=== PATIENT | female | born 1980 | race Caucasian/White ===

== ENCOUNTER 2021-05-17 13:13 | Inpatient (IN) ==
[2021-05-17 13:25] VITALS: BMI 33.3
--- NOTE | 2021-05-17 13:37 | DR.SOBA ---
HPI Time Seen Time Seen by Provider: 05/17/21 13:31 Primary Care Physician Primary Care Physician: ABBEY WATTS Complaints Chief Complaint Doctors Comments: 40 y/o female, ill for the past several days. Presents with worsening dyspnea. Pt started with back pain, 1 week ago. Developed a nono productive cough several days ago. Tested negative for Covid (no vaccines), treated with Zpak/Levaquin for possible pneumonia. Having persistent cough, worsening dyspnea. Dyspnea worse with exertion, improved with rest. Associated with decreased taste, fever, body aches. Chief Complaint:: PT. STATES SHE WAS DIAGNOSED WITH PNEUMONIA THIS PAST TUESDAY PER PCP AND WAS PLACED ON LEVAQUIN AND A ZPAK. PT. TESTED NEGATIVE FOR COVID ON TUESDAY. PT. HAS HAD SHORTNESS OF BREATH, FEVER, COUGH X 1 WEEK. PT. STATES THE SHORTNESS OF BREATH HAS GOTTEN WORSE. PT. ALSO C/O CHEST DISCOMFORT, HEADACHE AND BACK PAIN. COVID-19 Coronavirus risk:travel/contact w/high risk person: Yes Has patient experienced Coronavirus symptoms: Yes Coronavirus symptoms experienced: Fever, Coughing and Shortness of Breath Reviewed Nurses Notes Reviewed: Yes Source History Provided: Patient Mode of Arrival Mode of Arrival: Ambulatory Timing Onset of Chief Complaint: 05/10/21 If Chest Pain Quality: Aching If Cough Cough: Nonproductive PMH PMH Past Medical History: No Past Surgical History: Yes Surgical History: Other Past Surgical History Comment: NECK Family History History of Family Medical Conditions: Yes Family Medical History: Diabetes Mellitus, Cancer and Coronary Artery Disease Social History Does patient currently use any type of tobacco product: No Have you used tobacco products in the last 12 months: No Type of Tobacco Use: None Does any household member use tobacco: No Alcohol Use: None Do you use any recreational Drugs:: No Lives With: Spouse Lives Where: Home Infectious screening In the last 2 months have you had wt loss of >10#?: NO Have you had fever, night sweats or hemotysis?: No Have you traveled outside the country in the last 6 months?: No Isolation: Droplet ROS Review of Systems Constitutional: Chills, Fever and Weakness Eyes: No Symptoms Reported ENTM: No Symptoms Reported Respiratoy: Non-Productive Cough and Short of Breath Cardiovascular: No Symptoms Reported Gastrointestinal/Abdominal: Constipation Genitourinary: No Symptoms Reported Neurological: No Symptoms Reported Musculoskeletal: Muscle Pain Integumentary: No Symptoms Reported Hematologic/Lymphatic: No Symptoms Reported Endocrine: No Symptoms Reported Psychiatric: No Symptoms Reported All Other Systems: Reviewed and Negative PE Vital Signs Vitals: Temperature 98.0 F Pulse Rate 88 Respiratory Rate 24 Blood Pressure 114/79 O2 Sat by Pulse Oximetry 99 General Limitations: No Limitations General Appearance: Alert and In Distress (mild, dry cough, some tachypnea) Head Head Exam: Normal Inspection Eyes Eye exam: Normal Appearance ENT ENT Exam: Normal Exam Neck Neck Exam: Normal Inspection Chest Chest Inspection: Normal Inspection Respiratory Respiratory Exam: Normal Lung Sounds Bilat Respiratory Exam: Bilateral: Clear to Auscultation Cardiovascular Cardiovascular Exam: Regular Rate, Normal Rhythm and Normal Heart Sounds Abdominal Exam Abdominal Exam: Normal Inspection Extremities Extremities Exam: Normal Inspection and Full ROM; negative Edema Back Back Exam: Normal Inspection Neurologic Neurological Exam: Alert, Oriented X3 and CN II-XII Intact; negative Motor Sensory Deficit Psychiatric Psychiatric Exam: Normal Affect Skin Skin Exam: Warm MDM Differential Diagnosis Differential Diagnosis: Bronchitis, CHF and Pneumonia Differential Diagnosis Comment:: Covid, influenza, RSV COURSE Treatment Treatment: 40 y/o female, ill past week with dry cough, worsening dyspnea. + concerning for Covid. W/u initiated. 1430 - Covid +. CXR with bilateral patchy, gropund glass infiltrates. Pt clinically with covid pneumonia, degree of hypoxia. Recommend admission for further treatment. Discussed with the hospitalist, Dr. Goodwin, accepts the admission. His COMPUTER SUPPORT TECHNICIAN has seen the pt here in the ER. [facility]OR Labs Reviewed Laboratory Results Reviewed?: Yes Result Diagrams: 05/17/21 14:00 05/17/21 14:00 Laboratory: WBC 11.6 X10^3/uL (3.6-10.0) H 05/17/21 14:00 RBC 5.69 X10^6/uL (3.5-5.4) H 05/17/21 14:00 Hgb 11.0 g/dL (12.0-16.0) L 05/17/21 14:00 Hct 35.1 % (36.0-47.0) L 05/17/21 14:00 MCV 61.7 fL (80.0-100.0) L 05/17/21 14:00 MCH 19.4 pg (27.0-34.0) L 05/17/21 14:00 MCHC 31.4 g/dL (33.0-35.0) L 05/17/21 14:00 RDW 20.1 % (11.6-16.5) H 05/17/21 14:00 Plt Count 304 X10^3/uL (150.0-450.0) 05/17/21 14:00 Plt Count Comment Adequate (ADEQUATE) 05/17/21 14:00 MPV 8.4 fL (7.4-11.0) 05/17/21 14:00 Neut % (Auto) 87.6 % (42.0-75.0) H 05/17/21 14:00 Lymph % (Auto) 7.2 % (21.0-51.0) L 05/17/21 14:00 [place] % (Auto) 5.0 % (0.0-13.0) 05/17/21 14:00 Eos % (Auto) 0.0 % (0.9-2.9) L 05/17/21 14:00 Baso % (Auto) 0.2 % (0.2-1.0) 05/17/21 14:00 Neut # (Auto) 10.1 x10^3/uL (2.2-4.8) H 05/17/21 14:00 Lymph # (Auto) 0.8 X10^3/uL (1.3-2.9) L 05/17/21 14:00 [place] # (Auto) 0.6 x10^3/uL (0.3-0.8) 05/17/21 14:00 Eos # (Auto) 0.0 x10^3/uL (0.0-0.2) 05/17/21 14:00 Baso # (Auto) 0.0 X10^3/uL (0.0-0.1) 05/17/21 14:00 Absolute Nucleated RBC 0.0 /100WBC 05/17/21 14:00 Plt Morphology Comment Normal (NORMAL) 05/17/21 14:00 RBC Morphology Abnormal (NORMAL) A 05/17/21 14:00 Hypochromasia 1+ A 05/17/21 14:00 Anisocytosis Slight A 05/17/21 14:00 Microcytosis 2+ A 05/17/21 14:00 Ovalocytes 1+ A 05/17/21 14:00 D-Dimer 0.70 ug/ml (0.0-0.57) H* 05/17/21 14:00 Sample Site Right brachial 05/17/21 14:05 ABG pH 7.480 (7.35-7.45) H 05/17/21 14:05 ABG pCO2 35.0 mmHg (35.0-45.0) 05/17/21 14:05 ABG pO2 66.0 mmHg (80.0-100.0) L 05/17/21 14:05 ABG HCO3 26.1 mmol/L (22-26) H 05/17/21 14:05 ABG O2 Saturation 94.0 % (90-100) 05/17/21 14:05 ABG Base Excess 2.8 mmol/L (-2.0-2.0) H 05/17/21 14:05 Wu Test Na 05/17/21 14:05 A-a Gradient 40.0 mmHg 05/17/21 14:05 FiO2 21.0 05/17/21 14:05 Blood Gas Comments Paulina well aw 05/17/21 14:05 Sodium 137 mmol/L (136-145) 05/17/21 14:00 Corrected Sodium TNP 05/17/21 14:00 Potassium 3.7 mmol/L (3.5-5.1) 05/17/21 14:00 Chloride 101 mmol/L (98-107) 05/17/21 14:00 Carbon Dioxide 27.3 mmol/L (21-32) 05/17/21 14:00 BUN 13 mg/dL (7-18) 05/17/21 14:00 Creatinine 0.94 mg/dL (0.55-1.02) 05/17/21 14:00 Est GFR (MDRD) Af Amer > 60 (>60) 05/17/21 14:00 Est GFR (MDRD) Non-Af > 60 (>60) 05/17/21 14:00 Glucose 83 mg/dL (65-99) 05/17/21 14:00 Calcium 8.0 mg/dL (8.5-10.1) L 05/17/21 14:00 Corrected Calcium 8.7 mg/dL (8.5-10.1) 05/17/21 14:00 Ferritin 20 ng/mL (8-252) 05/17/21 14:00 Total Bilirubin 0.30 mg/dL (0.2-1.0) 05/17/21 14:00 AST 50 Units/L (15-37) H 05/17/21 14:00 ALT 91 Units/L (12-78) H 05/17/21 14:00 Alkaline Phosphatase 94 Units/L (46-116) 05/17/21 14:00 C-Reactive Protein 35.80 mg/L (0-3.0) H 05/17/21 14:00 B-Natriuretic Peptide < 5.0 pg/mL (0-79) 05/17/21 14:00 Total Protein 7.7 g/dL (6.4-8.2) 05/17/21 14:00 Albumin 3.1 g/dL (3.4-5.0) L 05/17/21 14:00 Globulin 4.6 g/dL (2.5-4.5) H 05/17/21 14:00 Albumin/Globulin Ratio 0.7 Ratio (1.1-2.1) L 05/17/21 14:00 SARS-CoV-2 (PCR) Positive (NEGATIVE) A 05/17/21 13:49 Influenza Type A (PCR) Negative (NEGATIVE) 05/17/21 13:49 Influenza Type B (PCR) Negative (NEGATIVE) 05/17/21 13:49 RSV (PCR) Negative (NEGATIVE) 05/17/21 13:49 Other Results Comments: WBC 11,600. ABG - pO2low at 66, pulse ox 94% RA. Chemistries overall acceptable. CRP elevated to 35. Covid is +. XRAY XRAY Interpreted by: Radiologist X-ray Results: + bilateral patchy infiltrates, ground glass. Opioid Opioid Risk Tool Total: 0 Total Score Risk Category: Low Risk Copyright: Herman VEE predicting aberrant behaviors Diagnosis Discharge Problem: Pneumonia due to 2019-nCoV
[2021-05-17] MEDS ORDERED: NS 1000 ML 1,000 ML IV ONE (13:38)
--- NOTE | 2021-05-17 14:02 | RAD ---
HISTORYSOB, PNEUMONIA, COUGH, DYSPNEASTUDYSingle-view [id number]/22/[facility]FINDINGSThe trachea is midline. The cardiac silhouette is accentuated by portable technique. Developing interstitial and airspace opacities of the left midlung zone with subtle opacity the right midlung zone. Continued follow-up to evaluate developing multifocal pneumonia is recommended. The bony thorax is unremarkable.IMPRESSIONDeveloping foot multifocal airspace opacities with interstitial ground-glass opacities. Continued follow-up will be needed for underlying atypical infectious etiologies.Electronically signed by: ELIANE PETER (May 17, 2021 14:00:17)
[2021-05-17 14:10] LABS: ABG BASE EXCESS 2.8 mmol/L (-2.0-2.0); ABG HCO3 26.1 mmol/L (22-26)
[2021-05-17] MEDS ORDERED: NS 1000 ML 1,000 ML ONE (14:10)
[2021-05-17 14:12] LABS: BASOPHILS % (AUTO) 0.2 % (0.2-1.0); HEMATOCRIT 35.1 % (36.0-47.0); LYMPHOCYTES # (AUTO) 0.8 X10^3/uL (1.3-2.9); LYMPHOCYTES % (AUTO) 7.2 % (21.0-51.0); MEAN CORPUSCULAR HEMOGLOBIN 19.4 pg (27.0-34.0); MEAN CORPUSCULAR HGB CONC 31.4 g/dL (33.0-35.0); MEAN CORPUSCULAR VOLUME 61.7 fL (80.0-100.0); MEAN PLATELET VOLUME 8.4 fL (7.4-11.0); MONOCYTES # (AUTO) 0.6 x10^3/uL (0.3-0.8); NEUTROPHILS # (AUTO) 10.1 x10^3/uL (2.2-4.8); NEUTROPHILS % (AUTO) 87.6 % (42.0-75.0); PLATELET COUNT 304 X10^3/uL (150.0-450.0); RED BLOOD COUNT 5.69 X10^6/uL (3.5-5.4); RED CELL DISTRIBUTION WIDTH 20.1 % (11.6-16.5); WHITE BLOOD COUNT 11.6 X10^3/uL (3.6-10.0)
[2021-05-17 14:23] LABS: ALANINE AMINOTRANSFERASE 91 Units/L (12-78); ALBUMIN 3.1 g/dL (3.4-5.0); ALKALINE PHOSPHATASE 94 Units/L (46-116); ASPARTATE AMINO TRANSFERASE 50 Units/L (15-37); BLOOD UREA NITROGEN 13 mg/dL (7-18); CARBON DIOXIDE 27.3 mmol/L (21-32); CHLORIDE 101 mmol/L (98-107); COR CA(FOR HYPOALB) 8.7 mg/dL (8.5-10.1); CREATININE 0.94 mg/dL (0.55-1.02); SODIUM 137 mmol/L (136-145); TOTAL PROTEIN 7.7 g/dL (6.4-8.2); eGFR NON BLACK RACES > 60 (>60)
[2021-05-17 14:27] LABS: ANISOCYTOSIS SLIGHT; HYPOCHROMASIA 1+; MICROCYTOSIS 2+; OVALOCYTES 1+; PLATELET MORPHOLOGY COMMENT NORMAL (NORMAL)
[2021-05-17] MEDS ORDERED: REMDESIVIR 200 MG in NS 250 ML IV 250 ML IV ONE (16:09)
[2021-05-17] MEDS ORDERED: NS 250 ML IV 250 ML IV ONE (16:59)
[2021-05-17] MEDS ORDERED: DUONEB 0.5 MG/3 MG (3 mL) NEB ONE (17:09)
[2021-05-17] MEDS: DUONEB 0.5 MG/3 MG (3 mL) NEB SCH (17:48)
[2021-05-17] MEDS: ROBITUSSIN DM PO SCH ×2 (18:10→20:06)
[2021-05-17] MEDS ORDERED: PROVENTIL NEB TX 0.083% 2.5MG/ 3ML NEB PRN (18:34)
[2021-05-17] MEDS: ZITHROMAX INJ 500 MG VIAL 500 MG in NS 250 ML IV 250 ML IV SCH (19:00)
[2021-05-17] MEDS ORDERED: TYLENOL 325 MG TAB PO ONE (19:35)
[2021-05-17] MEDS ORDERED: COLACE CAP 100 MG PO ONE (19:35)
[2021-05-17] MEDS ORDERED: ROBITUSSIN DM ONE (19:35)
[2021-05-17] MEDS: COLACE CAP 100 MG PO SCH (20:05)
[2021-05-17] MEDS: TYLENOL 325 MG TAB PO PRN (20:06)
[2021-05-17] MEDS ORDERED: SOLU-Medrol 125 MG VIAL ONE (20:50)
[2021-05-17] MEDS: SOLU-Medrol 125 MG VIAL IVP SCH (21:14)
[2021-05-17] MEDS: TUSSIONEX PENNKINETIC SUSP PO PRN (21:15)
[2021-05-17] MEDS: AMBIEN PO PRN (21:15)
[2021-05-18] MEDS: DUONEB 0.5 MG/3 MG (3 mL) NEB SCH ×4 (00:55→16:57)
[2021-05-18] MEDS ORDERED: DUONEB 0.5 MG/3 MG (3 mL) NEB ONE ×2 (00:58→05:35)
[2021-05-18] MEDS: SOLU-Medrol 125 MG VIAL IVP SCH ×3 (05:12→21:00)
[2021-05-18] MEDS: TYLENOL 325 MG TAB PO PRN ×3 (05:16→23:15)
[2021-05-18] MEDS ORDERED: NS 100 ML IV 100 ML ONE (08:51)
--- NOTE | 2021-05-18 09:37 | CT ---
HISTORYRule out PE, COVID positiveSTUDYCTA CHESTCOMPARISONChest radiograph from 1 day prior.TECHNIQUECTA chest protocol with axial images from the thoracic inlet to upper abdomen with IV contrast. Sagittal and coronal reformats and MIP images were created. Automated exposure control was utilized.FINDINGSThe visualized thyroid gland appears benign. Non-atherosclerotic normal caliber thoracic aorta. Pulmonary artery is normal in caliber centrally. No filling defect is identified to suggest pulmonary embolism. The heart is normal in size. No pericardial effusion. No pathologic adenopathy in the thorax. Visualized upper abdomen has a benign appearance. No acute osseous abnormality. The trachea and mainstem bronchi appear patent. Moderate bilateral ground-glass opacities and consolidations in a pattern typical for COVID 19. There is also some mild subsegmental atelectasis in the lung bases. No pleural effusion or pneumothorax.IMPRESSIONNegative for pulmonary embolism. Bilateral moderate ground-glass and consolidation in a pattern typical for COVID 19.Electronically signed by: Beni Ellis (May 18, 2021 09:35:22)
[2021-05-18] MEDS: PULMICORT NEB TX 0.5 MG NEB SCH ×2 (09:52→20:42)
[2021-05-18 10:00] LABS: ABG BASE EXCESS 2.2 mmol/L (-2.0-2.0); ABG HCO3 26.5 mmol/L (22-26)
[2021-05-18] MEDS: ROBITUSSIN DM PO SCH ×5 (10:32→22:30)
[2021-05-18] MEDS: MILK OF MAGNESIA PO SCH (10:33)
[2021-05-18] MEDS: REMDESIVIR 100 MG in NS 250 ML IV 250 ML IV SCH (10:33)
[2021-05-18] MEDS: LOVENOX INJ 30 MG SYR SC SCH ×2 (10:34→21:00)
[2021-05-18] MEDS: ZITHROMAX INJ 500 MG VIAL 500 MG in NS 250 ML IV 250 ML IV SCH (10:34)
[2021-05-18 10:46] LABS: BASOPHILS % (AUTO) 0 % (0.2-1.0); HEMATOCRIT 33.8 % (36.0-47.0); HEMOGLOBIN 10.7 g/dL (12.0-16.0); LYMPHOCYTES # (AUTO) 0.5 X10^3/uL (1.3-2.9); MEAN CORPUSCULAR HEMOGLOBIN 19.5 pg (27.0-34.0); MEAN CORPUSCULAR HGB CONC 31.5 g/dL (33.0-35.0); MEAN CORPUSCULAR VOLUME 61.7 fL (80.0-100.0); MEAN PLATELET VOLUME 8.7 fL (7.4-11.0); MONOCYTES # (AUTO) 0.2 x10^3/uL (0.3-0.8); MONOCYTES % (AUTO) 1.5 % (0.0-13.0); NEUTROPHILS # (AUTO) 9.4 x10^3/uL (2.2-4.8); NEUTROPHILS % (AUTO) 93.5 % (42.0-75.0); PLATELET COUNT 317 X10^3/uL (150.0-450.0); RED BLOOD COUNT 5.48 X10^6/uL (3.5-5.4); RED CELL DISTRIBUTION WIDTH 20.5 % (11.6-16.5); WHITE BLOOD COUNT 10.1 X10^3/uL (3.6-10.0)
[2021-05-18 11:06] LABS: ALANINE AMINOTRANSFERASE 120 Units/L (12-78); ALBUMIN 2.8 g/dL (3.4-5.0); ALKALINE PHOSPHATASE 115 Units/L (46-116); ASPARTATE AMINO TRANSFERASE 62 Units/L (15-37); BLOOD UREA NITROGEN 12 mg/dL (7-18); CALCIUM 8.5 mg/dL (8.5-10.1); CARBON DIOXIDE 27.2 mmol/L (21-32); CHLORIDE 104 mmol/L (98-107); COR CA(FOR HYPOALB) 9.5 mg/dL (8.5-10.1); COR NA(FOR HYPERGLY) 142 mmol/L (136-145); CREATININE 0.91 mg/dL (0.55-1.02); SODIUM 140 mmol/L (136-145); TOTAL PROTEIN 7.4 g/dL (6.4-8.2); eGFR NON BLACK RACES > 60 (>60)
[2021-05-18 11:46] LABS: BAND NEUTROPHILS % 1 % (0-10); PLATELET MORPHOLOGY COMMENT NORMAL (NORMAL)
[2021-05-18] MEDS ORDERED: DUONEB 0.5 MG/3 MG (3 mL) NEB SCH (18:00)
--- NOTE | 2021-05-18 18:43 | DR.H&P ---
H&P - History & Physical for Day of: H&P Date: 05/17/21 - Chief Complaint Chief Complaint: CCC, SOB, COVID 19+ - History of Present Illness History of Present Illness: PT IS 40WF ER ADMISSION WITH CO FAILED OUTPT TREATMENT OF COVID 19+ PT HAD PNEUMONIA ON CXR WITH HYPOXIA. PT DENIES ANY PMH OF CAD, DM OR HTN. PT ADMITTED FOR TREATMENT AND EVALUATION FOR ACUTE ILLNESS. - Past Medical History Past Medical History: Arthritis, Hypertension - Past Surgical History Surgical History: Ortho Surgery - Family History Family Medical History: Diabetes Mellitus, Cancer, [place], Hypertension - Social History Does patient currently use any type of tobacco product: No Have you used tobacco products in the last 12 months: No Type of Tobacco Use: None Does any household member use tobacco: No Alcohol Use: None Drug Use: None - Medications Home Medications: No Known Drug Allergies Allergy (Verified 05/17/21 14:15) CONTINUE taking the following medications azithromycin See Rx Instructions .ROUTE .COMPLEX 05/17/21 [History] levofloxacin 500 mg PO DAILY 05/17/21 [History] methylprednisolone See Rx Instructions .ROUTE .COMPLEX 05/17/21 [History] zolpidem 10 mg PO HS 05/17/21 [History] - Review of Systems Constitutional: Fever, Chills, Weakness, Malaise Eyes: No Symptoms Reported ENT: No Symptoms Reported Respiratory: Shortness of Breath, SOB with Excertion, Pleuritic Pain Cardiovascular: Chest Pain Gastrointestinal: No Symptoms Reported Genitourinary: No Symptoms Reported Musculoskeletal: No Symptoms Reported Skin: No Symptoms Reported Neurological: No Symptoms Reported - Physical Exam Vital Signs: Temperature 99.5 F Pulse Rate [Right Brachial] 103 Pulse Rate 95 Respiratory Rate 28 Blood Pressure [Left Arm] 140/70 Blood Pressure [Right Arm] 112/59 Blood Pressure 114/79 O2 Sat by Pulse Oximetry 92 Oriented: Normal Eyes: Normal Ear: Normal Nose: Normal Throat: Dry Respiratory: RML Diminished, RLL Diminished, LML Diminished, LLL Diminished Cardiovascular: Normal : Normal Auscultation: Bowel Sounds: Normal Palpation: Normal Tenderness: Normal Skin: Decreased Turgur Musculoskeletal: Back:Lumbar Psychiatric: Anxiety Affect: Anxious Speech Pattern: Clear, Appropriate - Assessment/Plan (1) Pneumonia due to 2019-nCoV Status: Acute Plan: ADMIT ISOLATION ICU. IV REMDESIVIR. IV ZITHROMAX AND ZOSYN, IV SOLU MEDROL. IV HYDRATION, AM ABG. RESP THERAPY, SUPPLEMENTAL O2 (2) Hypoxia Status: Acute - Allergies Allergies/Adverse Reactions: Allergies Allergy/AdvReac Type Severity Reaction Status Date / Time No Known Drug Allergies Allergy Verified 05/17/21 14:15
[2021-05-18] MEDS: AMBIEN PO PRN (21:00)
[2021-05-18] MEDS: COLACE CAP 100 MG PO SCH (21:00)
[2021-05-18] MEDS: TUSSIONEX PENNKINETIC SUSP PO PRN (21:00)
[2021-05-19] MEDS: DUONEB 0.5 MG/3 MG (3 mL) NEB SCH ×5 (00:05→16:40)
[2021-05-19] MEDS: SOLU-Medrol 125 MG VIAL IVP SCH ×3 (05:20→21:36)
[2021-05-19 05:21] LABS: BASOPHILS % (AUTO) 0.1 % (0.2-1.0); HEMATOCRIT 31.6 % (36.0-47.0); LYMPHOCYTES # (AUTO) 0.7 X10^3/uL (1.3-2.9); LYMPHOCYTES % (AUTO) 4.9 % (21.0-51.0); MEAN CORPUSCULAR HEMOGLOBIN 19.1 pg (27.0-34.0); MEAN CORPUSCULAR HGB CONC 31.5 g/dL (33.0-35.0); MEAN CORPUSCULAR VOLUME 60.7 fL (80.0-100.0); MEAN PLATELET VOLUME 8.6 fL (7.4-11.0); MONOCYTES # (AUTO) 0.3 x10^3/uL (0.3-0.8); MONOCYTES % (AUTO) 2.1 % (0.0-13.0); NEUTROPHILS % (AUTO) 92.9 % (42.0-75.0); PLATELET COUNT 351 X10^3/uL (150.0-450.0); RED BLOOD COUNT 5.21 X10^6/uL (3.5-5.4); RED CELL DISTRIBUTION WIDTH 20.9 % (11.6-16.5); WHITE BLOOD COUNT 15.1 X10^3/uL (3.6-10.0)
[2021-05-19 05:40] LABS: ALANINE AMINOTRANSFERASE 94 Units/L (12-78); ALBUMIN 2.6 g/dL (3.4-5.0); ALKALINE PHOSPHATASE 103 Units/L (46-116); ASPARTATE AMINO TRANSFERASE 39 Units/L (15-37); BLOOD UREA NITROGEN 14 mg/dL (7-18); CALCIUM 8.3 mg/dL (8.5-10.1); CARBON DIOXIDE 25.3 mmol/L (21-32); CHLORIDE 105 mmol/L (98-107); COR CA(FOR HYPOALB) 9.4 mg/dL (8.5-10.1); COR NA(FOR HYPERGLY) 142 mmol/L (136-145); CREATININE 0.75 mg/dL (0.55-1.02); SODIUM 139 mmol/L (136-145); TOTAL PROTEIN 6.9 g/dL (6.4-8.2); eGFR NON BLACK RACES > 60 (>60)
[2021-05-19 05:46] LABS: ANISOCYTOSIS 1+; HYPOCHROMASIA 1+; MICROCYTOSIS 2+; PLATELET MORPHOLOGY COMMENT NORMAL (NORMAL)
[2021-05-19 06:10] LABS: ABG BASE EXCESS 4.4 mmol/L (-2.0-2.0); ABG HCO3 28.4 mmol/L (22-26)
[2021-05-19 06:11] LABS: ABG ALLEN TEST POS
[2021-05-19] MEDS: PULMICORT NEB TX 0.5 MG NEB SCH ×2 (08:40→20:20)
[2021-05-19] MEDS ORDERED: LASIX IVP SCH (09:00)
[2021-05-19] MEDS: LOVENOX INJ 30 MG SYR SC SCH ×2 (09:10→21:37)
[2021-05-19] MEDS: ROBITUSSIN DM PO SCH ×4 (09:10→21:36)
[2021-05-19] MEDS: ZITHROMAX INJ 500 MG VIAL 500 MG in NS 250 ML IV 250 ML IV SCH (09:11)
[2021-05-19] MEDS: MILK OF MAGNESIA PO SCH (09:11)
[2021-05-19] MEDS: PROTONIX INJ 40 MG VIAL IVP SCH (09:34)
[2021-05-19] MEDS: NS 1000 ML 1,000 ML IV SCH (10:00)
[2021-05-19] MEDS: REMDESIVIR 100 MG in NS 250 ML IV 250 ML IV SCH (10:45)
[2021-05-19 11:41] LABS: CKMB % 1.8 % (<4); CREATINE KINASE 57 Units/L (26-192); CREATINE KINASE MB < 1.0 ng/mL (0-4.0); TROPONIN I < 0.02 ng/mL (0-1.5)
[2021-05-19] MEDS: LEVSIN/MAALOX/LIDOC VISC PO SCH ×4 (11:45→21:34)
[2021-05-19] MEDS ORDERED: TORADOL 30 MG VIAL IVP ONE (17:15)
[2021-05-19] MEDS ORDERED: MUCOMYST (RESPIRATORY USE ONLY) NEB SCH (18:00)
[2021-05-19] MEDS ORDERED: MUCOMYST (RESPIRATORY USE ONLY) ONE (19:41)
[2021-05-19] MEDS ORDERED: XOPENEX 1.25 MG/3 ML NEBULE NEB ONE (19:41)
[2021-05-19] MEDS: MUCOMYST (RESPIRATORY USE ONLY) NEB SCH (20:20)
[2021-05-19] MEDS: XOPENEX 1.25 MG/3 ML NEBULE NEB SCH (20:20)
[2021-05-19] MEDS: TYLENOL 325 MG TAB PO PRN (20:40)
[2021-05-19] MEDS: COLACE CAP 100 MG PO SCH (21:34)
[2021-05-19] MEDS: AMBIEN PO PRN (21:37)
[2021-05-19] MEDS: VISTARIL PO PRN (21:37)
[2021-05-19] MEDS: TUSSIONEX PENNKINETIC SUSP PO PRN (21:38)
[2021-05-20] MEDS: SOLU-Medrol 125 MG VIAL IVP SCH ×3 (05:03→21:33)
[2021-05-20] MEDS: NS 1000 ML 1,000 ML IV SCH ×3 (05:03→17:12)
--- NOTE | 2021-05-20 07:14 | RAD ---
HISTORYFollow-up COVID-19STUDYChest AP [id number]/25/2021, CTA chest 05/18/2021FINDINGSHeart is within normal limits in size. The ekta are normal. Peripheral ground-glass upper lobe infiltrates and some medial right basilar infiltrate are unchanged. No pleural effusions are identified. Bony thorax is unremarkable.IMPRESSIONNo change bilateral peripheral and right medial basal ground-glass infiltrates when compared to the prior examinationElectronically signed by: EZEKIEL YIN (May 20, 2021 07:13:11)
[2021-05-20 07:30] LABS: ABG ALLEN TEST POS; ABG HCO3 29.1 mmol/L (22-26)
[2021-05-20 07:56] LABS: BASOPHILS % (AUTO) 0.1 % (0.2-1.0); HEMATOCRIT 30.6 % (36.0-47.0); HEMOGLOBIN 9.7 g/dL (12.0-16.0); LYMPHOCYTES # (AUTO) 0.8 X10^3/uL (1.3-2.9); LYMPHOCYTES % (AUTO) 5.9 % (21.0-51.0); MEAN CORPUSCULAR HEMOGLOBIN 19.4 pg (27.0-34.0); MEAN CORPUSCULAR HGB CONC 31.5 g/dL (33.0-35.0); MEAN CORPUSCULAR VOLUME 61.6 fL (80.0-100.0); MEAN PLATELET VOLUME 8.6 fL (7.4-11.0); MONOCYTES # (AUTO) 0.3 x10^3/uL (0.3-0.8); MONOCYTES % (AUTO) 2.5 % (0.0-13.0); NEUTROPHILS # (AUTO) 12.5 x10^3/uL (2.2-4.8); NEUTROPHILS % (AUTO) 91.5 % (42.0-75.0); PLATELET COUNT 396 X10^3/uL (150.0-450.0); RED BLOOD COUNT 4.97 X10^6/uL (3.5-5.4); RED CELL DISTRIBUTION WIDTH 20.8 % (11.6-16.5); WHITE BLOOD COUNT 13.7 X10^3/uL (3.6-10.0)
[2021-05-20 08:20] LABS: ALANINE AMINOTRANSFERASE 67 Units/L (12-78); ALBUMIN 2.4 g/dL (3.4-5.0); ALKALINE PHOSPHATASE 90 Units/L (46-116); ASPARTATE AMINO TRANSFERASE 19 Units/L (15-37); BLOOD UREA NITROGEN 22 mg/dL (7-18); CALCIUM 8.2 mg/dL (8.5-10.1); CARBON DIOXIDE 29.8 mmol/L (21-32); CHLORIDE 107 mmol/L (98-107); COR CA(FOR HYPOALB) 9.5 mg/dL (8.5-10.1); COR NA(FOR HYPERGLY) 143 mmol/L (136-145); CREATININE 0.83 mg/dL (0.55-1.02); SODIUM 142 mmol/L (136-145); TOTAL PROTEIN 6.4 g/dL (6.4-8.2); eGFR NON BLACK RACES > 60 (>60)
[2021-05-20 08:35] LABS: BAND NEUTROPHILS % 2 % (0-10); PLATELET MORPHOLOGY COMMENT NORMAL (NORMAL)
[2021-05-20] MEDS: LOVENOX INJ 30 MG SYR SC SCH ×2 (08:35→20:53)
[2021-05-20] MEDS: LEVSIN/MAALOX/LIDOC VISC PO SCH ×4 (08:35→20:54)
[2021-05-20 08:36] LABS: ANISOCYTOSIS 1+; MICROCYTOSIS 2+
[2021-05-20] MEDS: ROBITUSSIN DM PO SCH ×4 (08:36→20:54)
[2021-05-20] MEDS: PROTONIX INJ 40 MG VIAL IVP SCH (08:36)
[2021-05-20] MEDS: MILK OF MAGNESIA PO SCH (08:36)
[2021-05-20] MEDS: REMDESIVIR 100 MG in NS 250 ML IV 250 ML IV SCH (08:36)
[2021-05-20] MEDS: XOPENEX 1.25 MG/3 ML NEBULE NEB SCH ×4 (08:50→21:20)
[2021-05-20] MEDS: MUCOMYST (RESPIRATORY USE ONLY) NEB SCH ×2 (08:50→21:20)
[2021-05-20] MEDS: PULMICORT NEB TX 0.5 MG NEB SCH ×2 (08:50→21:20)
[2021-05-20] MEDS: TYLENOL 325 MG TAB PO PRN ×2 (09:24→21:33)
[2021-05-20] MEDS: ZITHROMAX INJ 500 MG VIAL 500 MG in NS 250 ML IV 250 ML IV SCH (10:04)
[2021-05-20] MEDS: TUSSIONEX PENNKINETIC SUSP PO PRN ×2 (11:50→23:18)
[2021-05-20] MEDS: COLACE CAP 100 MG PO SCH (20:53)
[2021-05-20] MEDS: AMBIEN PO PRN (21:33)
[2021-05-20] MEDS: VISTARIL PO PRN (21:34)
[2021-05-21 04:46] LABS: ABG BASE EXCESS 3.7 mmol/L (-2.0-2.0); ABG HCO3 27.7 mmol/L (22-26)
[2021-05-21 04:47] LABS: ABG ALLEN TEST POS
[2021-05-21 04:58] LABS: BASOPHILS % (AUTO) 0.1 % (0.2-1.0); HEMATOCRIT 29.3 % (36.0-47.0); HEMOGLOBIN 9.4 g/dL (12.0-16.0); LYMPHOCYTES # (AUTO) 0.8 X10^3/uL (1.3-2.9); MEAN CORPUSCULAR HEMOGLOBIN 19.7 pg (27.0-34.0); MEAN CORPUSCULAR HGB CONC 32.2 g/dL (33.0-35.0); MEAN CORPUSCULAR VOLUME 61.3 fL (80.0-100.0); MEAN PLATELET VOLUME 8.5 fL (7.4-11.0); MONOCYTES # (AUTO) 0.5 x10^3/uL (0.3-0.8); NEUTROPHILS # (AUTO) 10.7 x10^3/uL (2.2-4.8); NEUTROPHILS % (AUTO) 88.9 % (42.0-75.0); PLATELET COUNT 448 X10^3/uL (150.0-450.0); RED BLOOD COUNT 4.78 X10^6/uL (3.5-5.4); RED CELL DISTRIBUTION WIDTH 20.5 % (11.6-16.5)
[2021-05-21 05:08] LABS: BLOOD UREA NITROGEN 19 mg/dL (7-18); CALCIUM 7.7 mg/dL (8.5-10.1); CHLORIDE 108 mmol/L (98-107); COR NA(FOR HYPERGLY) 143 mmol/L (136-145); CREATININE 0.69 mg/dL (0.55-1.02); SODIUM 142 mmol/L (136-145); eGFR NON BLACK RACES > 60 (>60)
[2021-05-21 05:38] LABS: ANISOCYTOSIS 1+; MICROCYTOSIS 2+; PLATELET MORPHOLOGY COMMENT NORMAL (NORMAL)
[2021-05-21] MEDS: SOLU-Medrol 125 MG VIAL IVP SCH ×3 (05:39→21:04)
[2021-05-21] MEDS: NS 1000 ML 1,000 ML IV SCH ×3 (05:39→20:36)
--- NOTE | 2021-05-21 06:01 | RAD ---
HISTORYPNEUMONIASTUDYCHEST, 1 [id number]/28/2021FINDINGSThe trachea is midline. The cardiac silhouette is unremarkable. Ground-glass bilateral upper lobe and right basilar infiltrates unchanged. No pleural effusion or pneumothorax.. The bony thorax is unremarkable.IMPRESSIONBilateral upper lobe and right basilar infiltrates, unchanged from 05/20/2021lectronically signed by: Marlon Nicole (May 21, 2021 05:58:14)
[2021-05-21] MEDS: LEVSIN/MAALOX/LIDOC VISC PO SCH ×3 (08:58→16:19)
[2021-05-21] MEDS: ZITHROMAX INJ 500 MG VIAL 500 MG in NS 250 ML IV 250 ML IV SCH (08:59)
[2021-05-21] MEDS: PROTONIX INJ 40 MG VIAL IVP SCH (08:59)
[2021-05-21] MEDS: LOVENOX INJ 30 MG SYR SC SCH ×2 (08:59→20:34)
[2021-05-21] MEDS: MILK OF MAGNESIA PO SCH (09:00)
[2021-05-21] MEDS: ROBITUSSIN DM PO SCH ×4 (09:27→20:35)
[2021-05-21] MEDS: REMDESIVIR 100 MG in NS 250 ML IV 250 ML IV SCH (09:27)
[2021-05-21] MEDS: XOPENEX 1.25 MG/3 ML NEBULE NEB SCH ×4 (09:52→20:55)
[2021-05-21] MEDS: MUCOMYST (RESPIRATORY USE ONLY) NEB SCH ×2 (09:52→20:55)
[2021-05-21] MEDS: PULMICORT NEB TX 0.5 MG NEB SCH ×2 (09:52→20:55)
[2021-05-21] MEDS: TYLENOL 325 MG TAB PO PRN ×2 (10:24→21:05)
[2021-05-21 11:46] LABS: ALANINE AMINOTRANSFERASE 59 Units/L (12-78); ALBUMIN 2.3 g/dL (3.4-5.0); ALKALINE PHOSPHATASE 77 Units/L (46-116); ASPARTATE AMINO TRANSFERASE 22 Units/L (15-37); COR CA(FOR HYPOALB) 9.1 mg/dL (8.5-10.1)
[2021-05-21] MEDS ORDERED: TORADOL 30 MG VIAL IVP ONE (16:46)
[2021-05-21 17:29] LABS: CKMB % 1.9 % (<4); CREATINE KINASE 53 Units/L (26-192); CREATINE KINASE MB < 1.0 ng/mL (0-4.0); TROPONIN I < 0.02 ng/mL (0-1.5)
[2021-05-21] MEDS: COLACE CAP 100 MG PO SCH (20:35)
[2021-05-21] MEDS: TUSSIONEX PENNKINETIC SUSP PO PRN (20:36)
[2021-05-21] MEDS: AMBIEN PO PRN (20:36)
[2021-05-22] MEDS: LEVSIN/MAALOX/LIDOC VISC PO SCH ×2 (01:26→10:14)
[2021-05-22] MEDS: VISTARIL PO PRN (01:32)
[2021-05-22] MEDS: SOLU-Medrol 125 MG VIAL IVP SCH (05:06)
[2021-05-22 05:38] LABS: BASOPHILS % (AUTO) 0.1 % (0.2-1.0); HEMATOCRIT 29.4 % (36.0-47.0); HEMOGLOBIN 9.2 g/dL (12.0-16.0); LYMPHOCYTES # (AUTO) 1.5 X10^3/uL (1.3-2.9); LYMPHOCYTES % (AUTO) 12.2 % (21.0-51.0); MEAN CORPUSCULAR HEMOGLOBIN 19.5 pg (27.0-34.0); MEAN CORPUSCULAR HGB CONC 31.3 g/dL (33.0-35.0); MEAN CORPUSCULAR VOLUME 62.3 fL (80.0-100.0); MEAN PLATELET VOLUME 8.6 fL (7.4-11.0); MONOCYTES # (AUTO) 0.7 x10^3/uL (0.3-0.8); MONOCYTES % (AUTO) 5.8 % (0.0-13.0); NEUTROPHILS % (AUTO) 81.9 % (42.0-75.0); PLATELET COUNT 427 X10^3/uL (150.0-450.0); RED BLOOD COUNT 4.72 X10^6/uL (3.5-5.4); RED CELL DISTRIBUTION WIDTH 20.1 % (11.6-16.5); WHITE BLOOD COUNT 12.2 X10^3/uL (3.6-10.0)
[2021-05-22 05:42] LABS: ALANINE AMINOTRANSFERASE 48 Units/L (12-78); ALBUMIN 2.2 g/dL (3.4-5.0); ALKALINE PHOSPHATASE 67 Units/L (46-116); ASPARTATE AMINO TRANSFERASE 17 Units/L (15-37); BLOOD UREA NITROGEN 19 mg/dL (7-18); CALCIUM 7.8 mg/dL (8.5-10.1); CARBON DIOXIDE 28.5 mmol/L (21-32); CHLORIDE 111 mmol/L (98-107); COR CA(FOR HYPOALB) 9.2 mg/dL (8.5-10.1); CREATININE 0.69 mg/dL (0.55-1.02); SODIUM 143 mmol/L (136-145); TOTAL PROTEIN 5.7 g/dL (6.4-8.2); eGFR NON BLACK RACES > 60 (>60)
--- NOTE | 2021-05-22 05:48 | RAD ---
HISTORYCOVID PNEUMONIASTUDYCHEST, 1 [id number]/29/2021FINDINGSThe trachea is midline. The cardiac silhouette is unremarkable. Bilateral upper lobe and right basilar infiltrates unchanged. No pneumothorax.. The bony thorax is unremarkable.IMPRESSIONBilateral upper lobe and right basilar infiltrates unchanged from previous 05/21/2021lectronically signed by: Marlon Nicole (May 22, 2021 05:46:20)
[2021-05-22 06:12] LABS: ANISOCYTOSIS 1+; BAND NEUTROPHILS % 4 % (0-10); MICROCYTOSIS 2+; OVALOCYTES PRESENT; PLATELET MORPHOLOGY COMMENT NORMAL (NORMAL)
[2021-05-22 06:13] LABS: BURR CELLS PRESENT
[2021-05-22 06:52] LABS: ABG BASE EXCESS 5.8 mmol/L (-2.0-2.0); ABG HCO3 29.8 mmol/L (22-26)
[2021-05-22 06:54] LABS: ABG ALLEN TEST POS
[2021-05-22] MEDS: NS 1000 ML 1,000 ML IV SCH (09:00)
[2021-05-22] MEDS: MUCOMYST (RESPIRATORY USE ONLY) NEB SCH (09:19)
[2021-05-22] MEDS: PULMICORT NEB TX 0.5 MG NEB SCH (09:19)
[2021-05-22] MEDS: XOPENEX 1.25 MG/3 ML NEBULE NEB SCH ×2 (09:19→12:17)
[2021-05-22] MEDS: LOVENOX INJ 30 MG SYR SC SCH (10:17)
[2021-05-22] MEDS: MILK OF MAGNESIA PO SCH (10:17)
[2021-05-22] MEDS: PROTONIX INJ 40 MG VIAL IVP SCH (10:17)
[2021-05-22] MEDS: ROBITUSSIN DM PO SCH (10:18)
[2021-05-22] MEDS: ZITHROMAX INJ 500 MG VIAL 500 MG in NS 250 ML IV 250 ML IV SCH (10:18)
[2021-05-22 12:59] VITALS: BP 130/59
== END 2021-05-22 12:50 | disposition home or self-care (01) | DRG 177 ==
LOC: ER 13:21 → ICU 16:02
PROVIDERS: ADMIT Internal Medicine; ATTEND Internal Medicine
DX: R09.02 Hypoxemia; R06.02 Shortness of breath; J12.82 Pneumonia due to coronavirus disease 2019; U07.1 COVID-19